=== PATIENT | male | born 1985 | race Caucasian/White ===

== ENCOUNTER 2018-08-18 00:05 | Emergency (ER) | payer OTHER ==
--- NOTE | 2018-08-18 00:34 | EDPHY ---
H & P Stated Complaint: right shoulder injury Time Seen by Provider: 08/18/18 00:26 HPI/ROS: Chief Complaint: Shoulder injury HPI: 33-year-old male was playing hockey and skated into the wall, striking his right shoulder. He felt immediate pop and is complaining of pain in his right shoulder. No prior shoulder injuries. He was wearing full gear. No other injuries. Complaining of right shoulder pain and pain moving his arm. ROS: 10 systems were reviewed and were negative except those elements noted in the HPI. PMH: [employer] shunt as a child, currently nonfunctioning Social History: No smoking, no alcohol, no recreational drug use Family History: non-contributory Physical Exam: Gen: Awake, Alert, No Distress HEENT: Nose: no rhinorrhea Eyes: PERRLA, EOMI Mouth: Moist mucosa Neck: Supple, no JVD Chest: nontender, lungs clear to auscultation Heart: S1, S2 normal, no murmur Abd: Soft, non-tender, no guarding Back: no CVA tenderness, no midline tenderness Ext: Right shoulder deformity consistent with AC separation versus distal clavicle fracture. He has tenderness over the distal clavicle and the AC joint. Humerus appears to be located within the glenohumeral joint. Skin: no rash Neuro: CN II-XII intact, Sensation grossly intact, Strength 5/5 in bilateral upper and lower extremities - Personal History Current Tetanus Diphtheria and Acellular Pertussis (TDAP): Yes - Medical/Surgical History Hx Asthma: No Hx Chronic Respiratory Disease: No Hx Diabetes: No Hx Cardiac Disease: No Hx Renal Disease: No Hx Cirrhosis: No Hx Alcoholism: No Hx HIV/AIDS: No Hx Splenectomy or Spleen Trauma: No - Social History Smoking Status: Never smoked Constitutional: Initial Vital Signs Temperature (C) 36.7 C 08/18/18 00:08 Heart Rate 61 08/18/18 00:08 Respiratory Rate 20 08/18/18 00:08 Blood Pressure 123/81 H 08/18/18 00:08 O2 Sat (%) 95 08/18/18 00:08 O2 Delivery Mode Room Air Allergies/Adverse Reactions: No Known Allergies Allergy (Unverified 08/18/18 00:08) Home Medications: Medication Instructions Recorded NK [No Known Home Meds] 08/18/18 Medical Decision Making - Diagnostics Imaging Results: X-rays shows a distal clavicle fracture per my interpretation. ED Course/Re-evaluation: Patient has been placed in a sling. Will refer to Orthopedics for outpatient follow-up. Departure - Departure Disposition: Home, Routine, Self-Care Clinical Impression: Clavicle fracture Condition: Good Instructions: Clavicle Fracture (ED), How to Use a Sling (ED) Additional Instructions: Follow up with orthopedist in 2-3 days for further evaluation. Take ibuprofen, 600 mg every 8 hr. You may alternate with acetaminophen, 1000 mg every 8 hr. Referrals: Pratik Maurice MD [Medical Doctor] - As per Instructions
[2018-08-18] MEDS ORDERED: IBUPROFEN 600 MG TAB PO ONE (01:17)
[2018-08-18 01:33] VITALS: BP 125/82
== END 2018-08-18 01:32 | disposition home or self-care (01) ==
DX: S42.001A Fracture of unspecified part of right clavicle, initial encounter for closed fracture (principal); W22.8XXA Striking against or struck by other objects, initial encounter; Y92.330 Ice skating rink (indoor) (outdoor) as the place of occurrence of the external cause; Y93.22 Activity, ice hockey; Y99.9 Unspecified external cause status
CPT/HCPCS: A4565